=== PATIENT | male | born 1950 | race Caucasian/White ===

== ENCOUNTER → 2018-08-12 | Day surgery (SDC) | payer OTHER ==
[~2018-08-12] MED LIST: BUPIVACAINE HCL 0.5 % INJ/PF 30 ML SDV ONE; LIDOCAINE 1% INJ-PF (10 MG/ML) 30 ML SDV ONE; METHYLPREDNISOLONE ACETATE INJ 80 MG/1 ML VIAL ONE
--- NOTE | 2018-08-12 14:29 | RADIOLOGY REPORT (SQ) ---
EXAM DESCRIPTION: INJECT/ASPIR HIP/SHLDR/KNEE; FLUORO/NEEDLE PLACEMENT COMPLETED DATE/TIME: 08/12/2018 1:35 pm REASON FOR STUDY: M16.11 UNILATERAL PRIMARY OSTEOARTHRITIS, RIGHT HIP M16.11 UNILATERAL PRIMARY OST EOARTHRITIS, RIGHT HIP COMPARISON: None. FLUOROSCOPY TIME: 16 seconds fluoro time 1 digital fluoroscopic image saved to PACS. LIMITATIONS: None. PROCEDURE: SITE OF INJECTION: Right hip joint LOCALIZING CONTRAST TYPE AND DOSE: 2 mL of Isovue-300 MEDICATION TYPE AND DOSE: 80 mg of Depo-Medrol, 5 mL of 0.5% bupivacaine Using local anesthesia and sterile technique with fluoroscopic guidance, the needle was advanced into the joint. Iodinated contrast was injected to verify intraarticular placement. This was followed by therapeutic injection of the indicated medications. The needle was removed. There were no immediat e complications. Preprocedure pain level: 4/5. Postprocedure pain level: 0/5. IMPRESSION: THERAPEUTIC INJECTION OF THE RIGHT HIP JOINT ABOVE. COMMENT: Patient medication list reviewed: Yes- Quality ID# [id number]:Eligible professional attests to doc umenting in the medical record they obtained, updated, or reviewed the patient's current medications. . Quality ID 145: Final reports for procedures using fluoroscopy that document radiation exposure triston jose, or exposure time and number of fluorographic images (if radiation exposure indices are not avail able) TECHNICAL DOCUMENTATION: JOB ID: [id number] [employer]- All Rights Reserved Reading location - IP/workstation name: [email or web address]
== END ==
LOC: EDSTATUS 08-11 13:00 → RAD 12:48
PROVIDERS: ATTEND Orthopaedic Surgery
DX: M16.11 Unilateral primary osteoarthritis, right hip (principal)
CPT/HCPCS: 20610; 77002; J3490; J1040

== ENCOUNTER 2019-09-13 20:46 | Emergency (ER) | payer OTHER ==
--- NOTE | 2019-09-13 21:12 | ER Document Report ---
ED Medical Screen (RME) - General Chief Complaint: Leg Pain Stated Complaint: LEFT LEG PAIN/SWELLING/POST OP SWELLING Time Seen by Provider: 09/13/19 21:01 Primary Care Provider: DARIUSZ LEVIN MD [Primary Care Provider] - Follow up as needed Mode of Arrival: Wheelchair Information source: Patient Notes: HPI; 68-year-old male status post left hip replacement 8 days ago presents to the emergency room complaining of worsening hip pain, swelling and decreased sensation to his left leg patient states his been having swelling with decreased sensation ever since he had the surgery. Also states he has stents in his left leg. Was referred to the emergency room by his surgeon to rule out a DVT. Only blood thinner is a 325 mg aspirin daily PE: Alert and oriented x3. Lungs with bibasilar rales no rhonchi no wheezes. Heart: Regular rate rhythm without murmurs, rubs, gallops. 2+ pitting edema to the left leg. Positive post tib pulse on the left. Unable to do full assessment in triage. I have greeted and performed a rapid initial assessment of this patient. A comprehensive ED assessment and evaluation of the patient, analysis of test results and completion of the medical decision making process will be conducted by additional ED providers. I have specifically instructed the patient or family members with the patient to immediately return to any nursing staff should anything change in the patient's condition or with their chief complaint. TRAVEL OUTSIDE OF THE [place] IN LAST 30 DAYS: No - Related Data Allergies/Adverse Reactions: No Known Allergies Allergy (Unverified 09/13/19 21:05) Past Medical History - Social History Frequency of alcohol use: Occasional Drug Abuse: None Physical Exam - Vital signs Vitals: Temp Pulse Resp BP Pulse Ox 98.2 F 71 20 114/61 97 09/13/19 20:56 09/13/19 20:56 09/13/19 20:56 09/13/19 20:56 09/13/19 20:56 Course - Vital Signs Vital signs: Temp Pulse Resp BP Pulse Ox 98.2 F 71 20 114/61 97 09/13/19 20:56 09/13/19 20:56 09/13/19 20:56 09/13/19 20:56 09/13/19 20:56 Doctor's Discharge - Discharge Referrals: WERTMAN,DARIUSZ, MD [Primary Care Provider] - Follow up as needed
[2019-09-13 21:29] LABS: HEMATOCRIT 38.5 % (37.9-51.0); HEMOGLOBIN 13.3 g/dL (13.5-17.0); INTERNATIONAL RATION (INR) 0.95; MEAN CORPUSCULAR HEMOGLOBIN 30.6 pg (27.0-33.4); MEAN CORPUSCULAR HGB CONC 34.5 g/dL (32.0-36.0); MEAN CORPUSCULAR VOLUME 89 fl (80-97); PLATELET COUNT 242 10^3/uL (150-450); PROTHROMBIN TIME 12.7 SEC (11.4-15.4); RED BLOOD COUNT 4.33 10^6/uL (4.35-5.55); RED CELL DISTRIBUTION WIDTH 13.9 % (11.5-14.0); WHITE BLOOD COUNT 5.1 10^3/uL (4.0-10.5)
[2019-09-13 21:47] LABS: ALBUMIN 3.8 g/dL (3.5-5.0); ALKALINE PHOSPHATASE 62 U/L (38-126); ANION GAP 8 (5-19); ASPARTATE AMINO TRANSFERASE 32 U/L (17-59); BILIRUBIN,TOTAL 0.6 mg/dL (0.2-1.3); BLOOD UREA NITROGEN 14 mg/dL (7-20); CALCIUM 9.2 mg/dL (8.4-10.2); CARBON DIOXIDE 29 mmol/L (22-30); CHLORIDE 96 mmol/L (98-107); GLUCOSE 156 mg/dL (75-110); POTASSIUM 4.8 mmol/L (3.6-5.0); TOTAL PROTEIN 6.7 g/dL (6.3-8.2)
[2019-09-13 21:52] LABS: ABSOLUTE LYMPHOCYTES# (MANUAL) 1.1 10^3/uL (0.5-4.7); ABSOLUTE MONOCYTES # (MANUAL) 0.4 10^3/uL (0.1-1.4); BASOPHILS % (MANUAL) 0 % (0-2); EOSINOPHILS % (MANUAL) 2 % (0-6); LYMPHOCYTES % (MANUAL) 22 % (13-45); MONOCYTES % (MANUAL) 8 % (3-13); PLATELET COMMENT ADEQUATE; SEGMENTED NEUTROPHILS % (MAN) 68 % (42-78); TOTAL CELLS COUNTED 100
--- NOTE | 2019-09-13 21:55 | RADIOLOGY REPORT (SQ) ---
EXAM DESCRIPTION: [facility]Lex: XR CHEST 2 VIEWS Views: 2 CLINICAL HISTORY: 68 years Male; edema; COMPARISON: None. FINDINGS: Lungs: Lungs are clear, with no focal infiltrate, pneumothorax, or pleural effusion. Mediastinum: Sternal wires are noted. AICD is in place with intact leads. No mediastinal widening or shift. Bones: Bony structures are unremarkable. IMPRESSION: 1. No acute cardiothoracic abnormality. 2. Previous sternotomy 3. AICD
[2019-09-13 21:56] LABS: POLYCHROMASIA SLIGHT
[2019-09-13 21:58] LABS: OVALOCYTES SLIGHT; SCHISTOCYTES SLIGHT
--- NOTE | 2019-09-13 22:27 | RADIOLOGY REPORT (SQ) ---
EXAM DESCRIPTION: US EXTREMITY VEINS UNILATERAL COMPLETED DATE/TME: 09/13/2019 21:05 CLINICAL HISTORY: 68 years, Male, left leg swelling COMPARISON: None. TECHNIQUE: Transverse and longitudinal sonographic images of the left lower extremity deep venous system LIMITATIONS: None. FINDINGS: No visible areas of thrombus. Normal compression and augmentation throughout. Doppler images are unremarkable IMPRESSION: Negative exam copyright 2010 [employer]- All Rights Reserved
[2019-09-13] MEDS ORDERED: HYDROMORPHONE HCL INJ/PF 2 MG/ML AMPULE IM ONE (23:43)
--- NOTE | 2019-09-13 23:54 | ER Document Report ---
Entered by KAREN GRANT SCRIBE 09/13/19 0572 Acting as scribe for:ANTONIO MOREIRA, DO ED Extremity Problem, Lower - General Chief Complaint: Leg Pain Stated Complaint: LEFT LEG PAIN/SWELLING/POST OP SWELLING Time Seen by Provider: 09/13/19 21:01 Primary Care Provider: DARIUSZ LEVIN MD [ASSOCIATE] - 09/14/19 Mode of Arrival: Wheelchair Information source: Patient Notes: This 68 year old male patient who is x8 days post op total left hip replacement in [place] presents to the ED today with complaints of pain and swelling to the left lower extremity. Patient states that the entire leg is also cool to the touch and expresses concerns for DVT. Patient states that he had the hip surgery due to arthritis and that he had x6 stents placed in the left leg prior to this surgery. He reports that he was placed on Oxycodone and Gabapentin and has been ambulating with a walker. Currently in in-home therapy for the next x2 weeks followed by physical therapy. No blood thinners. at bedside mentions that the patient had a total right hip replacement in January 2019 that healed without any complications. TRAVEL OUTSIDE OF THE [place] IN LAST 30 DAYS: No - Related Data Allergies/Adverse Reactions: No Known Allergies Allergy (Unverified 09/13/19 21:05) Past Medical History - General Information source: Patient - Social History Smoking Status: Never Smoker Cigarette use (# per day): No Chew tobacco use (# tins/day): No Smoking Education Provided: No Frequency of alcohol use: Occasional Drug Abuse: None Lives with: Spouse/Significant other Family History: Reviewed & Not Pertinent Patient has suicidal ideation: No Patient has homicidal ideation: No Past Surgical History: Reports: Hx Orthopedic Surgery - bilateral total hip replacements, Hx Vascular Surgery - x6 stents in LLE Review of Systems - Review of Systems Constitutional: No symptoms reported EENT: No symptoms reported Cardiovascular: No symptoms reported Respiratory: No symptoms reported Gastrointestinal: No symptoms reported Genitourinary: No symptoms reported Male Genitourinary: No symptoms reported Musculoskeletal: See HPI, Muscle pain, Leg swelling Skin: No symptoms reported Hematologic/Lymphatic: No symptoms reported Neurological/Psychological: No symptoms reported -: Yes All other systems reviewed and negative Physical Exam - Vital signs Vitals: Temp Pulse Resp BP Pulse Ox 98.2 F 71 20 114/61 97 07/21/20 20:56 09/13/19 20:56 09/13/19 20:56 09/13/19 20:56 09/13/19 20:56 Interpretation: Normal - General General appearance: Alert In distress: None - HEENT Head: Normocephalic, Atraumatic Eyes: Normal Extraocular movements intact: Yes Pupils: PERRL - Respiratory Respiratory status: No respiratory distress Chest status: Nontender Breath sounds: Normal Chest palpation: Normal - Cardiovascular Rhythm: Regular Heart sounds: Normal auscultation Murmur: No Friction rub: No Gallop: None auscultated Normal capillary refill: Yes - Abdominal Inspection: Obese Distension: No distension Bowel sounds: Normal Tenderness: Nontender Organomegaly: No organomegaly - Back Back: Normal, Nontender - Extremities General upper extremity: Normal inspection General lower extremity: Edema - in LLE from knee down, Other - LLE is increased in size compared to RLE.. No: Normal temperature - LLE is cooler to the touch than the RLE Hip: Other - Well healed incision noted to left hip lateral to the thigh with no redness or drainage. Subcutaneous hematoma noted to left hip. No redness, signs of infection, or drainage. - Neurological Neuro grossly intact: Yes Orientation: AAOx4 [place] Coma Scale Eye Opening: Spontaneous [place] Coma Scale Verbal: Oriented Raya Coma Scale Motor: Obeys Commands Raya Coma Scale Total: 15 - Psychological Associated symptoms: Normal affect, Normal mood - Skin Skin Temperature: Warm Skin Moisture: Dry Skin Color: Normal Course - Re-evaluation Re-evalutation: 09/13/19 23:44 MDM 68 year old vasculpath - ef 20%, 6 stents left leg is here on POD 8 with left leg pain and fear for DVT. He had surgery at [facility]. No new chest pain or sob. Taking asa 325 mg daily. The doppler here is reassuring. His left leg does have increased girth compared to the right but not more than would be expected for near term surgery. The temperature is a bit cool on that leg but the foot and lower leg have good color and capillary refill. He undoubtedly has vascular disease in that leg and has a relationship with the cardiologists in [place]. We discussed getting in touch in them for vasular follow up and he and his expressed understanding. We also discussed return precautions. - Vital Signs Vital signs: Temp Pulse Resp BP Pulse Ox 98.2 F 71 20 114/61 97 09/13/19 20:56 09/13/19 20:56 09/13/19 20:56 09/13/19 20:56 09/13/19 20:56 - Laboratory Result Diagrams: 09/13/19 21:14 09/13/19 21:14 Laboratory results interpreted by me: 09/13/19 09/13/19 09/13/19 21:14 21:14 21:14 RBC 4.33 L Hgb 13.3 L Sodium 132.7 L Chloride 96 L Glucose 156 H NT-Pro-B Natriuret Pep 213 H - Diagnostic Test Radiology reviewed: Reports reviewed Discharge - Discharge Clinical Impression: Left leg pain Condition: Stable Disposition: HOME, SELF-CARE Instructions: Myalagia (Muscle Pain) ([facility]), Myofascial Pain ([facility]), Pain Medication Injection ([facility]) Additional Instructions: Rest, Call the dialysis technician in follow up from [place]. Also call the orthopedist for follow up and call them tomorrow. Return here for chest pain, shortness of breath or increased pain in the left leg or change in color as described. Referrals: DARIUSZ LEVIN MD [ASSOCIATE] - 09/14/19 I personally performed the services described in the documentation, reviewed and edited the documentation which was dictated to the scribe in my presence, and it accurately records my words and actions.
[2019-09-14 00:33] VITALS: BP 116/62
== END 2019-09-14 00:15 | disposition home or self-care (01) ==
LOC: ER 20:46
DX: M79.605 Pain in left leg (principal); R60.0 Localized edema; M79.10 Myalgia, unspecified site; Z95.820 Peripheral vascular angioplasty status with implants and grafts; Z96.643 Presence of artificial hip joint, bilateral; Z79.82 Long term (current) use of aspirin
CPT/HCPCS: 99283; 96372; 36415; 85025; 85610; 80053; 83880; 93971; 71046; J1170

== ENCOUNTER 2019-11-02 12:53 | Day surgery (SDC) | payer OTHER ==
[~2019-11-02 12:53] MED LIST changes: -BUPIVACAINE HCL 0.5 % INJ/PF 30 ML SDV ONE; +BUPIVACAINE HCL 0.75% INJ/PF (7.5 MG/1 ML) 10 ML SDV OD PRN; +KETOROLAC TROMETHAMINE 0.45% 4 DROP/0.4 ML DROPERETTE OD PRN; -LIDOCAINE 1% INJ-PF (10 MG/ML) 30 ML SDV ONE; +LIDOCAINE 4% INJ/PF (40 MG/ML) 5 ML AMPUL OD PRN; -METHYLPREDNISOLONE ACETATE INJ 80 MG/1 ML VIAL ONE
[2019-11-02] MEDS ORDERED: MIDAZOLAM 2 MG/2 ML INJ ONE (12:58)
[2019-11-02] MEDS: TETRACAINE HCL 0.5% OPH SOLN 4 ML OD PRN ×4 (13:29→13:55)
[2019-11-02] MEDS: TROPICAMIDE 1% OPH SOLN 15 ML OD PRN ×3 (13:29→13:43)
[2019-11-02] MEDS: CYCLOPENTOLATE 0.2%/PHENYLEPHRINE 1% OPH SOLN 2 ML OD PRN ×3 (13:29→13:43)
[2019-11-02] MEDS: BESIFLOXACIN HCL 0.6% OPH SUSP 5 ML BOTTLE OD PRN ×4 (13:30→14:14)
[2019-11-02] MEDS: LIDOCAINE 1%/PHENYLEPHRINE 1.5% 0.8 ML SYRINGE ONE ×2 (14:04)
[2019-11-02] MEDS: CHONDR SU A NA/HYALUR INTRAOC KIT (SURGICARE) ONE ×2 (14:04)
[2019-11-02] MEDS: EPINEPHRINE INJ/PF 1 MG/1 ML AMPULE ONE ×2 (14:04)
[2019-11-02] MEDS: PREDNISOLONE ACETATE 1% OPH SUSP 5 ML OD PRN ×2 (14:14)
[2019-11-02] MEDS: DORZOLAMIDE HCL 2%/TIMOLOL MALEAT 0.5% OPH SOLN 10 ML OD PRN ×2 (14:14)
--- NOTE | 2019-11-02 14:28 | Operative Report ---
Operative Report-[facility] Operative Report: DATE OF SURGERY: November 02, 2019 PREOPERATIVE DIAGNOSIS: NUCLEAR CATARACT, RIGHT EYE. POSTOPERATIVE DIAGNOSIS: NUCLEAR CATARACT, RIGHT EYE. PROCEDURE PERFORMED: PHACOEMULSIFICATION WITH POSTERIOR CHAMBER INTRAOCULAR LENS IMPLANT, RIGHT EYE. SURGEON: Félix Yates DO MEDICATIONS AND ANESTHESIA: Versed: IV Versed Tetracaine drops: 1 to 2 drops given as needed COMPLICATION: None INDICATIONS FOR SURGERY: Medical necessity: Best corrected visual acuity worse than 20/40 secondary to cataracts with impairment of ability to carry out needs or desired activities, blurred vision, visual distortion, reduced contrast sensitivity and/or glare with association functional impairment and supporting documentation/testing, and cataracts causing symptomatic impairment of visual functions not corrected with tolerable changes in glasses or contact lenses interfering with activities of daily life. PROCEDURE: Consent: The risks, benefits and alternatives of this procedures was discussed with the patient. The patient read and signed the consent forms, was identified and was seated in the exam chair. IOL: MX 60 E 21.0 IOL Diopters: Phacoemulsification with posterior chamber intraocular lens implant: The face was prepped with 5% povidone iodine solution, and a few drops of 5% povidone iodine solution was instilled into the inferior fornix. A non-fenestrated drape was placed over the eye and the lids were parted with the speculum. A paracentesis was made with a 15 degree blade, and 1% lidocaine MPF followed by viscoelastic was injected into the anterior chamber. A 2.4 mm metal micro- keratome was used to create a temporal clear corneal incision. A circular anterior capsulorrhexis was created, followed by hydro-dissection and hydro- delineation. The phacoemulsification hand piece was inserted and the nucleus was removed with the Phaco chop technique. The irrigation-aspiration hand piece was used to remove the residual cortex, and vacuum the posterior capsule. The capsular bag was inflated and viscoelastic and the above-mentioned IOL was injected into the eye with care to insert both leaning and trailing haptics in the capsular bag. The irrigation/aspiration hand piece was reinserted to remove residual viscoelastic from the capsular bag and anterior chamber. The corneal incision was hydrated, and anterior chamber was inflated with sterile BSS via the paracentesis site, and found to be watertight. Postop medication: 1 drop of prednisolone into operative by followed by 1 drop of Cosopt into operative eye followed by 1 drop of Besivance intraoperative by other:
== END 2019-11-02 14:52 | disposition home or self-care (01) ==
LOC: SC 12:53
PROVIDERS: ATTEND Ophthalmology
DX: H25.11 Age-related nuclear cataract, right eye (principal); Z87.891 Personal history of nicotine dependence; Z83.3 Family history of diabetes mellitus; Z83.511 Family history of glaucoma; Z82.49 Family history of ischemic heart disease and other diseases of the circulatory system; E11.9 Type 2 diabetes mellitus without complications; I10 Essential (primary) hypertension; Z95.810 Presence of automatic (implantable) cardiac defibrillator; R01.1 Cardiac murmur, unspecified; M06.9 Rheumatoid arthritis, unspecified; E07.9 Disorder of thyroid, unspecified
CPT/HCPCS: 66984; 82962; 00142; V2632; J2250; J3490 ×3; A9270; J0171; 142

== ENCOUNTER 2019-11-16 10:54 | Day surgery (SDC) | payer OTHER ==
[~2019-11-16 10:54] MED LIST changes: -BUPIVACAINE HCL 0.75% INJ/PF (7.5 MG/1 ML) 10 ML SDV OD PRN; +CHONDR SU A NA/HYALUR INTRAOC KIT (SURGICARE) ONE; +EPINEPHRINE INJ/PF 1 MG/1 ML AMPULE ONE; -KETOROLAC TROMETHAMINE 0.45% 4 DROP/0.4 ML DROPERETTE OD PRN; +KETOROLAC TROMETHAMINE 0.45% 4 DROP/0.4 ML DROPERETTE OS PRN; +LIDOCAINE 1%/PHENYLEPHRINE 1.5% 0.8 ML SYRINGE ONE; -LIDOCAINE 4% INJ/PF (40 MG/ML) 5 ML AMPUL OD PRN
[2019-11-16] MEDS ORDERED: ONDANSETRON HCL INJ/PF 4 MG/2 ML SDV ONE (11:04)
[2019-11-16] MEDS ORDERED: FENTANYL CITRATE INJ/PF 100 MCG/2 ML AMPUL ONE (11:04)
[2019-11-16] MEDS ORDERED: MIDAZOLAM 2 MG/2 ML INJ ONE (11:04)
[2019-11-16] MEDS: TROPICAMIDE 1% OPH SOLN 15 ML OS PRN ×3 (11:25→11:46)
[2019-11-16] MEDS: TETRACAINE HCL 0.5% OPH SOLN 4 ML OS PRN ×2 (11:25→12:05)
[2019-11-16] MEDS: BESIFLOXACIN HCL 0.6% OPH SUSP 5 ML BOTTLE OS PRN ×4 (11:26→12:28)
[2019-11-16] MEDS: CYCLOPENTOLATE 0.2%/PHENYLEPHRINE 1% OPH SOLN 2 ML OS PRN ×3 (11:26→11:46)
[2019-11-16] MEDS: DORZOLAMIDE HCL 2%/TIMOLOL MALEAT 0.5% OPH SOLN 10 ML OS PRN ×2 (12:28)
[2019-11-16] MEDS: PREDNISOLONE ACETATE 1% OPH SUSP 5 ML OS PRN ×2 (12:28)
--- NOTE | 2019-11-16 15:00 | Operative Report ---
Operative Report-[facility] Operative Report: DATE OF SURGERY: November 16, 2019 PREOPERATIVE DIAGNOSIS: NUCLEAR CATARACT, LEFT EYE. POSTOPERATIVE DIAGNOSIS: NUCLEAR CATARACT, LEFT EYE. PROCEDURE PERFORMED: PHACOEMULSIFICATION WITH POSTERIOR CHAMBER INTRAOCULAR LENS IMPLANT, LEFT EYE. SURGEON: Félix Yates DO MEDICATIONS AND ANESTHESIA: Versed: IV Versed Tetracaine drops: 1 to 2 drops given as needed COMPLICATION: None INDICATIONS FOR SURGERY: Medical necessity: Best corrected visual acuity worse than 20/40 secondary to cataracts with impairment of ability to carry out needs or desired activities, blurred vision, visual distortion, reduced contrast sensitivity and/or glare with association functional impairment and supporting documentation/testing, and cataracts causing symptomatic impairment of visual functions not corrected with tolerable changes in glasses or contact lenses interfering with activities of daily life. PROCEDURE: Consent: The risks, benefits and alternatives of this procedures was discussed with the patient. The patient read and signed the consent forms, was identified and was seated in the exam chair. IOL: MX 60 E 20.5 IOL Diopters: Phacoemulsification with posterior chamber intraocular lens implant: The face was prepped with 5% povidone iodine solution, and a few drops of 5% povidone iodine solution was instilled into the inferior fornix. A non-fenestrated drape was placed over the eye and the lids were parted with the speculum. A paracentesis was made with a 15 degree blade, and 1% lidocaine MPF followed by viscoelastic was injected into the anterior chamber. A 2.4 mm metal micro- keratome was used to create a temporal clear corneal incision. A circular anterior capsulorrhexis was created, followed by hydro-dissection and hydro- delineation. The phacoemulsification hand piece was inserted and the nucleus was removed with the Phaco chop technique. The irrigation-aspiration hand piece was used to remove the residual cortex, and vacuum the posterior capsule. The capsular bag was inflated and viscoelastic and the above-mentioned IOL was injected into the eye with care to insert both leaning and trailing haptics in the capsular bag. The irrigation/aspiration hand piece was reinserted to remove residual viscoelastic from the capsular bag and anterior chamber. The corneal incision was hydrated, and anterior chamber was inflated with sterile BSS via the paracentesis site, and found to be watertight. Postop medication:1 drop of prednisolone into operative by followed by 1 drop of Cosopt into operative eye followed by 1 drop of Besivance intraoperative by Other:
== END 2019-11-16 13:08 | disposition home or self-care (01) ==
LOC: SC 10:54
PROVIDERS: ATTEND Ophthalmology
DX: H25.12 Age-related nuclear cataract, left eye (principal); Z98.41 Cataract extraction status, right eye; Z87.891 Personal history of nicotine dependence; E11.9 Type 2 diabetes mellitus without complications; I10 Essential (primary) hypertension; M10.9 Gout, unspecified; Z95.828 Presence of other vascular implants and grafts; Z83.511 Family history of glaucoma; Z95.810 Presence of automatic (implantable) cardiac defibrillator; Z95.1 Presence of aortocoronary bypass graft; K21.9 Gastro-esophageal reflux disease without esophagitis; M19.90 Unspecified osteoarthritis, unspecified site; E66.9 Obesity, unspecified; D64.9 Anemia, unspecified; I25.2 Old myocardial infarction
CPT/HCPCS: 82962; 66984; V2632; J2250; J3490 ×3; A9270; J0171; J3010; J2405

== ENCOUNTER 2020-02-14 03:27 | Emergency (ER) | payer OTHER ==
[2020-02-14] MEDS ORDERED: MIDAZOLAM 2 MG/2 ML INJ ONE ×3 (03:38→06:01)
[2020-02-14] MEDS ORDERED: MIDAZOLAM 2 MG/2 ML INJ IV ONE ×3 (03:40→06:09)
[2020-02-14 04:00] LABS: ABSOLUTE EOSINOPHILS # (AUTO) 0.2 10^3/uL (0.0-0.6); ABSOLUTE LYMPHOCYTES (AUTO) 1.4 10^3/uL (0.5-4.7); ABSOLUTE MONOCYTES (AUTO) 0.5 10^3/uL (0.1-1.4); ABSOLUTE NEUT (AUTO) 4.8 10^3/uL (1.7-8.2); BASOPHILS % (AUTO) 0.6 % (0-2); EOSINOPHILS % (AUTO) 2.2 % (0-6); HEMATOCRIT 44.3 % (37.9-51.0); HEMOGLOBIN 14.9 g/dL (13.5-17.0); LYMPHOCYTES % (AUTO) 20.1 % (13-45); MEAN CORPUSCULAR HEMOGLOBIN 29.6 pg (27.0-33.4); MEAN CORPUSCULAR HGB CONC 33.6 g/dL (32.0-36.0); MEAN CORPUSCULAR VOLUME 88 fl (80-97); MONOCYTES % (AUTO) 7.4 % (3-13); PLATELET COUNT 178 10^3/uL (150-450); RED BLOOD COUNT 5.03 10^6/uL (4.35-5.55); RED CELL DISTRIBUTION WIDTH 13.8 % (11.5-14.0); SEGMENTED NEUTROPHILS % (AUTO) 69.7 % (42-78); TOTAL CELLS COUNTED % (AUTO) 100 %; WHITE BLOOD COUNT 6.8 10^3/uL (4.0-10.5)
[2020-02-14] MEDS ORDERED: LEVETIRACETAM 500 MG/NACL-ISO 500 MG/100 ML RTUPB IV ONE (04:07)
[2020-02-14] MEDS ORDERED: MIDAZOLAM HCL 50 MG/100 ML RTUINJ IV PRN (04:07)
--- NOTE | 2020-02-14 04:16 | ER Document Report ---
ED General - General Chief Complaint: Seizure Stated Complaint: SEIZURE Primary Care Provider: DAVID MENDOZA PA [Primary Care Provider] - Follow up as needed Notes: 69-year-old male with CAD, CHF, AICD, diabetes, hypertension, hyperlipidemia pr esents with possible seizure in bed with . says she was awoken just prior to activating EMS by patient making wild whole body jerking movements in bed when she looked at patient he stopped making movements but was unable to wake patient up so she called EMS. Patient then started seeming very confused and was confused when EMS got there. Patient then had whole body shaking movements with EMS which resolved with Versed but then patient was extremely bradypneic and had no gag reflex when they put in an OPA so they intubated him in the field with ketamine and succinylcholine for airway protection. Patient had fingerstick of approximately 110 in the field. says that patient had been feeling completely well prior to going to bed. Had an active day helping their child move. Patient has had bilateral carotid endarterectomies the most recent which was done 2 weeks ago at [place]. Patient has had some residual pain in his anterior neck since but says that he was not complaining of any posterior neck pain or stiffness. Says he had a mild headache about a day prior to arrival which she took Advil for which seemed to improve it. denies any seizure history, alcohol or drug abuse or withdrawal, trauma, recent illness, fever, any complaints from patient prior to symptom onset. History limited by altered mental status. Patient given 500 of Keppra in the field. TRAVEL OUTSIDE OF THE [place] IN LAST 30 DAYS: No - Related Data Allergies/Adverse Reactions: No Known Allergies Allergy (Unverified 09/13/19 21:05) Past Medical History - General Information source: Relative, Emergency Med Personnel - Social History Smoking Status: Unknown if Ever Smoked Family History: Reviewed & Not Pertinent - Past Medical History Cardiac Medical History: Denies: Hx Heart Attack, Hx Hypertension Pulmonary Medical History: Denies: Hx Asthma Neurological Medical History: Denies: Hx Cerebrovascular Accident, Hx Seizures Endocrine Medical History: Reports: Hx Diabetes Mellitus Type 2 GI Medical History: Denies: Hx Hepatitis, Hx Hiatal Hernia, Hx Ulcer Infectious Medical History: Denies: Hx Hepatitis Past Surgical History: Reports: Hx Open Heart Surgery - 2 VESSELS, Hx Orthopedic Surgery - bilateral total hip replacements, Hx Vascular Surgery - x6 stents in LLE. Denies: Hx Pacemaker Review of Systems - Review of Systems -: Yes ROS unobtainable due to patient's medical condition - Intubated Physical Exam - Vital signs Vitals: Temp 96.2 F L 02/14/20 03:29 - Notes Notes: PHYSICAL EXAMINATION: GENERAL: Intubated sedated middle-age man appearing older than stated age HEAD: Atraumatic, normocephalic. EYES: Pupils equal round and appropriate constriction, sclera anicteric, con junctiva are normal. ENT: nares patent, moist mucous membranes. NECK: Normal range of motion, supple without lymphadenopathy, mild anterior neck redness without induration LUNGS: Intubated, bilateral breath sounds, spontaneous breaths, clear lungs HEART: Regular rate and rhythm without murmurs ABDOMEN: Soft, nontender, no guarding, no masses, no CVAT EXTREMITIES: Normal inspection, no edema NEUROLOGICAL: Spontaneous nonpurposeful movements of all extremities, obtunded SKIN: Warm, Dry, normal turgor Course - Re-evaluation Re-evalutation: 02/14/20 04:52 Patient without seizure history presents with seizure, no signs of trauma, no signs of precipitating infection drug use or withdrawal, rule out intracranial hemorrhage, stroke, electrolyte abnormalities, underlying cardiac etiology. Lactate elevation consistent with status epilepticus, ordered small fluid bolus given patient's significant CHF history with low EF as reported by , will trend. Unlikely meningitis given patient feeling well prior to seizure onset, but if patient has fever and/or leukocytosis and/or clinical picture changes will reevaluate need for lumbar puncture, but no indication at this time. No medications. Patient intubated for airway protection and bradypnea in the field likely secondary to Versed administration, no signs of primary pulmonary etiology. If signs of embolic stroke rule out DVT/PE and patent foramen ovale. 02/14/20 06:23 I increase patient's respiratory rate from 16-18 based on his initial VBG showed borderline respiratory acidosis. Patient's chest x-ray read as left lower lobe pneumonia however patient had no pneumonia symptoms prior to arrival, has no leukocytosis, has no fever, and this finding is more likely to represent aspiration pneumonitis and current evidence does not support prophylactic antibiotics for aspiration events. Will need to trend patient's respiratory status and other signs of developing infection, but no indication for antibiotics at this time. - Vital Signs Vital signs: Temp Pulse Resp BP Pulse Ox 96.2 F L 16 126/67 H 96 02/14/20 03:29 02/14/20 06:16 02/14/20 06:16 02/14/20 06:16 - Laboratory Results Result Diagrams: 02/14/20 03:40 02/14/20 03:40 Laboratory Results Interpreted: 02/14/20 02/14/20 02/14/20 03:40 03:40 04:35 Sodium 135.8 L Potassium 5.2 H Carbon Dioxide 21 L Glucose 189 H Lactic Acid 4.9 H Phosphorus 4.9 H Urine Protein 30 H Urine Glucose (UA) >=500 H Urine Ascorbic Acid 40 H Critical Laboratory Results Reviewed: No Critical Results - Radiology Results Critical Radiology Results Reviewed: No Critical Results - EKG Interpretation by Me Additional EKG results interpreted by me: 02/14/20 06:29 Heart rate 90, paced rhythm, no significant ST elevations or depressions, QTC 500 Discharge - Discharge Clinical Impression: Seizure Altered mental status Qualifiers: Altered mental status type: unspecified Qualified Code(s): R41.82 - Altered mental status, unspecified Disposition: [facility] Referrals: DAVID MENDOZA PA [Primary Care Provider] - Follow up as needed
[2020-02-14 04:17] LABS: ALBUMIN 4.3 g/dL (3.5-5.0); ALKALINE PHOSPHATASE 77 U/L (38-126); ANION GAP 14 (5-19); ASPARTATE AMINO TRANSFERASE 37 U/L (17-59); BILIRUBIN,DIRECT 0.3 mg/dL (0.0-0.4); BILIRUBIN,TOTAL 0.6 mg/dL (0.2-1.3); BLOOD UREA NITROGEN 14 mg/dL (7-20); CALCIUM 9.3 mg/dL (8.4-10.2); CARBON DIOXIDE 21 mmol/L (22-30); CHLORIDE 101 mmol/L (98-107); CREATINE KINASE 100 U/L (55-170); GLUCOSE 189 mg/dL (75-110); PHOSPHORUS 4.9 mg/dL (2.5-4.5); POTASSIUM 5.2 mmol/L (3.6-5.0); TOTAL PROTEIN 7.5 g/dL (6.3-8.2)
[2020-02-14 04:23] LABS: ALCOHOL < 10 mg/dL (NONE DETECTED)
--- NOTE | 2020-02-14 04:28 | RADIOLOGY REPORT (SQ) ---
CLINICAL HISTORY: AMS obtunded COMPARISON: None. TECHNIQUE: CT HEAD WITHOUT IV CONTRAST on 02/14/2020 3:40 AM CORRECTIONAL PROGRAM SPECIALIST This exam was performed according to our departmental dose-optimization program, which includes automated exposure control, adjustment of the mA and/or kV according to patient size and/or use of iterative reconstruction technique. FINDINGS: There is no acute hemorrhage, mass effect or midline shift. Zepeda-white differentiation is preserved. There is no hydrocephalus. There is no significant volume loss for age. The calvarium is intact. Orbits and globes are unremarkable. The paranasal sinuses are clear. Mastoid air cells are clear. IMPRESSION: No acute intracranial findings.
--- NOTE | 2020-02-14 04:33 | RADIOLOGY REPORT (SQ) ---
CLINICAL HISTORY: ams obtunded stroke carotid endarterectomy hx COMPARISON: None. 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 MIP reconstructions were generated. Stenoses are calculated by NASCET criteria. FINDINGS: The visualized aortic arch and origins of the great vessels unremarkable. The common carotid arteries are patent and symmetric bilaterally. No hemodynamically significant stenosis is observed at the common carotid bifurcations or origins of the internal carotid arteries bilaterally. Vertebral arteries are unremarkable without evidence of pseudoaneurysm, hemodynamically significant stenosis, or dissection. Intracranially the cavernous segments of the internal carotid arteries are patent and symmetric bilaterally. Vertebral basilar system within normal limits for age. No aneurysm identified within the [place]. Anterior, middle, and posterior cerebral circulations patent and symmetric bilaterally. Dural sinuses are well opacified and without filling defect. IMPRESSION: Unremarkable CT angiogram of the neck for age without dissection or hemodynamically significant stenosis. Unremarkable CTA of the brain without evidence of hemodynamically significant stenosis, aneurysm or AVM. CAROTID STENOSIS REFERENCE USING NASCET CRITERIA: % ICA stenosis = (1 - narrowest ICA diameter/diameter of distal cervical ICA) x 100. Mild - <50% stenosis. Moderate - 50-69% stenosis. Severe - 70-94% stenosis. Near occlusion - 95-99% stenosis. Occluded - 100% stenosis.
--- NOTE | 2020-02-14 04:33 | RADIOLOGY REPORT (SQ) ---
CLINICAL HISTORY: ams obtunded stroke carotid endarterectomy hx COMPARISON: None. 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 MIP reconstructions were generated. Stenoses are calculated by NASCET criteria. FINDINGS: The visualized aortic arch and origins of the great vessels unremarkable. The common carotid arteries are patent and symmetric bilaterally. No hemodynamically significant stenosis is observed at the common carotid bifurcations or origins of the internal carotid arteries bilaterally. Vertebral arteries are unremarkable without evidence of pseudoaneurysm, hemodynamically significant stenosis, or dissection. Intracranially the cavernous segments of the internal carotid arteries are patent and symmetric bilaterally. Vertebral basilar system within normal limits for age. No aneurysm identified within the [place]. Anterior, middle, and posterior cerebral circulations patent and symmetric bilaterally. Dural sinuses are well opacified and without filling defect. IMPRESSION: Unremarkable CT angiogram of the neck for age without dissection or hemodynamically significant stenosis. Unremarkable CTA of the brain without evidence of hemodynamically significant stenosis, aneurysm or AVM. CAROTID STENOSIS REFERENCE USING NASCET CRITERIA: % ICA stenosis = (1 - narrowest ICA diameter/diameter of distal cervical ICA) x 100. Mild - <50% stenosis. Moderate - 50-69% stenosis. Severe - 70-94% stenosis. Near occlusion - 95-99% stenosis. Occluded - 100% stenosis.
[2020-02-14 05:04] LABS: VENOUS BLOOD BASE EXCESS -2.5 mmol/L; VENOUS BLOOD HCO3 24.1 mmol/L (20-32); VENOUS BLOOD PCO2 48.4 mmHg (35-63); VENOUS BLOOD PH 7.32 (7.30-7.42)
[2020-02-14 05:24] LABS: APPEARANCE,URINE CLOUDY; BILIRUBIN,URINE NEGATIVE (NEGATIVE); COLOR,URINE YELLOW; GLUCOSE, URINE >=500 mg/dL (NEGATIVE); KETONES,URINE NEGATIVE (NEGATIVE); PROTEIN,URINE 30 mg/dL (NEGATIVE); URINE SPECIFIC GRAVITY 1.032; UROBILINOGEN,URINE NEGATIVE mg/dL (<2.0)
[2020-02-14 05:48] LABS: URINE AMPHETAMINES SCREEN NEGATIVE; URINE BARBITURATES SCREEN NEGATIVE; URINE COCAINE SCREEN NEGATIVE; URINE MARIJUANA (THC) SCREEN NEGATIVE; URINE METHADONE SCREEN NEGATIVE; URINE PHENCYCLIDINE SCREEN NEGATIVE
[2020-02-14 05:53] LABS: URINE BENZODIAZEPINES SCREEN UNCONFIRMED POSITIVE
--- NOTE | 2020-02-14 06:02 | RADIOLOGY REPORT (SQ) ---
CLINICAL HISTORY: intubated COMPARISON: None. 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 Left AICD is present. There is predominantly left basilar airspace disease. There are small pleural effusions. There is no pneumothorax. There are no acute osseous findings. Endotracheal tube tip is in the midtrachea. NG tube tip is in the stomach. IMPRESSION: Presumed left basilar pneumonia.
[2020-02-14] MEDS ORDERED: NORMAL SALINE 500 ML IV ONE (06:27)
--- NOTE | 2020-02-14 07:15 | EKG REPORT ---
SEVERITY:- ABNORMAL ECG - ATRIAL-SENSED VENTRICULAR-PACED RHYTHM : Confirmed by: Bala Leon MD 14-Feb-2020 07:14:56
[2020-02-14 07:49] VITALS: BP 145/72
== END 2020-02-14 08:15 | disposition short-term general hospital (02) ==
LOC: ER 03:27
DX: R56.9 Unspecified convulsions (principal); R41.82 Altered mental status, unspecified; J18.9 Pneumonia, unspecified organism; I25.10 Atherosclerotic heart disease of native coronary artery without angina pectoris; I50.9 Heart failure, unspecified; I11.0 Hypertensive heart disease with heart failure; E11.9 Type 2 diabetes mellitus without complications; E78.5 Hyperlipidemia, unspecified; Z95.810 Presence of automatic (implantable) cardiac defibrillator; Z20.828 Contact with and (suspected) exposure to other viral communicable diseases
CPT/HCPCS: 96376; 99291; 51702; 96375; 96365; 36415; 80307 ×2; 82550; 83605; 83735; 84100; 85025; 0241U ×4; 80053; 81001; 84484; 82803; 71045; 70450; 70496; 70498; 93005; 93010; 94002; 31500; J2250 ×2; J7040; J1953; C9803